=== PATIENT | female | born 1985 | race Caucasian/White ===

== ENCOUNTER 2021-04-03 20:46 | Emergency (ER) | payer OTHER ==
[2021-04-03] MEDS ORDERED: PLAQUENIL 200M200 MG PO (21:55)
[2021-04-03] MEDS ORDERED: PAMELOR50 M1 PO (21:56)
[2021-04-03] MEDS ORDERED: CYMBALTA30 M1 PO (21:56)
[2021-04-03] MEDS ORDERED: TENORMIN25 MG PO (21:57)
[2021-04-03 22:03] LABS: BASO # 0.03 (0.02-0.10); EOS # 0.08 (0.04-0.40); EOS % 1.1 % (1.0-5.0); HEMATOCRIT 44.6 % (37.0-47.0); HEMOGLOBIN 15.1 g/dL (12.5-16.0); LYMPH# 1.13 (1.50-4.00); MEAN CELL VOLUME 99 fl (78-100); MEAN CORPUSCULAR HEMOGLOBIN 34 pg (27-31); MEAN CORPUSCULAR HGB CONC 34 g/dL (33-37); MEAN PLATELET VOLUME 9.7 fl (7.4-10.4); MONO # 0.69 (0.20-0.80); NEU # 5.11 (1.40-6.50); PLATELET COUNT 207 K/mm3 (130-400); RED BLOOD COUNT 4.51 M/mm3 (4.10-5.30); RED CELL DISTRIBUTION WIDTH 11.3 % (11.5-14.5); WHITE BLOOD COUNT 7.1 K/mm3 (4.8-10.8)
[2021-04-03 22:12] LABS: ALBUMIN 3.8 g/dL (3.5-5.0); POTASSIUM 3.7 mmol/L (3.5-5.1)
[2021-04-03 22:13] LABS: CALCIUM 8.8 mg/dL (8.3-10.5)
[2021-04-03 22:16] LABS: TOTAL BILIRUBIN 0.2 mg/dL (0.2-1.2)
[2021-04-04 00:25] VITALS: BP 116/74
== END 2021-04-04 00:25 | disposition home or self-care (01) ==
LOC: ED 20:46
PROVIDERS: Nurse Practitioner Family
DX: I47.1 Supraventricular tachycardia (principal); D68.51 Activated protein C resistance; M32.9 Systemic lupus erythematosus, unspecified; F17.210 Nicotine dependence, cigarettes, uncomplicated; Z79.899 Other long term (current) drug therapy
CPT/HCPCS: J0153; J2250; J3010; J7030